=== PATIENT | male | born 1950 | race African-American/Black ===

== ENCOUNTER 2016-04-16 10:54 | Inpatient (IN) ==
[2016-04-16] MEDS ORDERED: ALPRAZolam 0.25 MG TABLET PO PRN (11:50)
[2016-04-16] MEDS ORDERED: PROMETHAZINE INJ 25 MG in SODIUM CHLORIDE 0.9% 50 ML IV PRN (11:50)
[2016-04-16] MEDS ORDERED: MYLANTA/LIDO VISC 2:1 300 ML BOTTLE SWISH/SPIT PRN (11:50)
[2016-04-16] MEDS ORDERED: chlorproMAZINE INJ 25 MG in SODIUM CHLORIDE 0.9% 100 ML IV PRN (11:50)
[2016-04-16] MEDS ORDERED: chlorproMAZINE INJ 50 MG in SODIUM CHLORIDE 0.9% 100 ML IV PRN (11:50)
[2016-04-16] MEDS ORDERED: MAGNESIUM HYDROXIDE SUSP 30 ML UDCUP PO PRN (11:50)
[2016-04-16] MEDS ORDERED: diphenhydrAMINE CAP 25 MG CAPSULE PO PRN (11:50)
[2016-04-16] MEDS ORDERED: MYLANTA/LIDO VISC 2:1 300 ML BOTTLE SWISH/SWAL PRN (11:50)
[2016-04-16] MEDS ORDERED: LACTULOSE 20 GM/30 ML UDCUP PO PRN (11:50)
[2016-04-16] MEDS ORDERED: BENZTROPINE 2 MG/2 ML AMP IV PRN (11:50)
[2016-04-16] MEDS ORDERED: traMADol 50 MG TABLET PO PRN (11:50)
[2016-04-16] MEDS ORDERED: ACETAMINOPHEN 325 MG TABLET PO PRN (11:50)
[2016-04-16] MEDS ORDERED: ALUMINUM/MAGNES/SIMETH MAX STR 30 ML UDCUP PO PRN (11:50)
[2016-04-16] MEDS ORDERED: TEMAZEPAM 7.5 MG CAPSULE PO PRN (11:50)
[2016-04-16] MEDS ORDERED: LOPERAMIDE 2 MG CAPSULE PO PRN ×2 (11:50)
[2016-04-16] MEDS ORDERED: chlorproMAZINE 25 MG TABLET PO PRN (11:50)
[2016-04-16] MEDS ORDERED: guaiFENesin 200 MG/10 ML UDCUP PO PRN (11:50)
[2016-04-16] MEDS ORDERED: ONDANSETRON 4 MG/2 ML VIAL IV PRN (11:50)
[2016-04-16] MEDS: SODIUM CHLORIDE 0.9% 1,000 ML IV SCH ×3 (12:35→13:54)
--- NOTE | 2016-04-16 14:32 | IR History and Physical Update ---
IR Pre-Procedure - History and Physical H&P was reviewed, the patient examined and there: are no changes in the patients condition since last H&P was completed. Reason for procedure:: 66-year-old male with severely elevated white count, 20-30. Admitted this afternoon for bone marrow aspirate, to be performed tomorrow. - Dictation Physical: refer to H&P completed by admitting physician - Physical Exam Vital Signs: Last Vital Signs Temp 98.3 F 04/16/16 11:39 Pulse 110 H 04/16/16 11:39 Resp 20 04/16/16 11:39 BP 125/68 04/16/16 11:39 Pulse Ox 96 04/16/16 11:39 Mental Status: alert and oriented - Sedation IR anesthesia plan for sedation: none ASA Class: II - Risks Risks: Procedures explained. Risks discussed include, but not limited to, the following:[ Pain] All questions answered. The following alternatives were discussed:[ Observation] Risks and benefits discussed with: patient Consent obtained from: patient
[2016-04-16] MEDS ORDERED: TEMAZEPAM 15 MG CAPSULE PO PRN (18:41)
[2016-04-16] MEDS: INSULIN GLARGINE 100 UNIT/ML SUBCUT SCH (20:55)
[2016-04-17] MEDS ORDERED: DIAZEPAM 5 MG TABLET PO ONE ×2 (00:01→11:00)
[2016-04-17 07:21] LABS: Basophils # 0.5 10*3/uL (0.0-0.2); Basophils % 0.5 % (0.0-0.8); Eosinophils # 1.5 10*3/uL (0.0-0.87); Eosinophils % 1.5 % (0.00-10.9); Hemoglobin 10.4 GM/DL (14.0-18.0); Immature Granulocytes % 13.5 %; Immature Granulocytes Absolute 13.21 #; Lymphocytes % 11.3 % (21.2-54.2); Mean Corpuscular HGB Conc 30.6 GM/DL (32-36); Mean Corpuscular Hemoglobin 32 PG (27-34); Monocytes # 19.1 10*3/uL (0.11-0.8); Monocytes % 19.6 % (1.7-12.7); NRBC # 6.03 10*3/uL; Neutrophils # 52.2 10*3/uL (1.4-7.4); Neutrophils % 53.6 % (38.7-73.9); Red Blood Count 3.27 MC/CUMM (3.8-5.5); Red Cell Distribution Width 18.6 % (9.3-17.3)
[2016-04-17 07:29] LABS: White Blood Count 97.5 T/CUMM (4-12)
[2016-04-17 07:30] LABS: Platelet Count 38 T/CUMM (130-400)
--- NOTE | 2016-04-17 07:45 | ECHO Report ---
Ted Seth Exam Date: 04/16/2016 14:52 Referring Physician: Technologist: An Olvera JORDANA Age: 66 Ht (in): Wt (lb): Gender: M Exam Location: [facility] Echo Indications: Suspected leukemia, for chemo meds BP: / HR: Rhythm: Sinus Technical Quality: IMPRESSIONS Normal left ventricular cavity size. Normal left ventricular wall thickness. Left ventricular ejection fraction is estimated at 60 %. Grade 1 diastolic dysfuncton. Mildly dilated left atrium. MEASUREMENTS (Male / Female) Normal Values 2D ECHO LV Diastolic Diameter PLAX 3.7 cm 4.2 - 5.9 / 3.9 - 5.3 cm LV Systolic Diameter PLAX 2.8 cm LV Fractional Shortening PLAX 24.1 % IVS Diastolic Thickness 0.9 cm 0.6 - 1.0 / 0.6 - 0.9 cm LVPW Diastolic Thickness 0.9 cm 0.6 - 1.0 / 0.6 - 0.9 cm RV Internal Dim ED PLAX 3.1 cm Aortic Root Diameter 3.3 cm LA Systolic Diameter LX 2.3 cm 3.0 - 4.0 / 2.7 - 3.8 cm DOPPLER TR Peak Velocity 292.0 cm/s TR Peak Gradient 34.1 mmHg FINDINGS Left Ventricle Normal left ventricular cavity size. Normal left ventricular wall thickness. Left ventricular ejection fraction is estimated at 60 %. Grade 1 diastolic dysfuncton. Right Ventricle The right ventricle is normal in size and function. Right Atrium The right atrium is normal in size. Left Atrium Mildly dilated left atrium. Mitral Valve Structurally normal mitral valve, with trace insufficiency. Aortic Valve Structurally normal aortic valve, without stenosis or regurgitation. Tricuspid Valve Morphologically normal tricuspid valve. Trace tricuspid valve regurgitation. Tricuspid regurgitation velocities suggest a PAP of 37 mmHg. Pulmonic Valve Morphologically normal pulmonic valve without significant stenosis. There is no pulmonic regurgitation. Pericardium Normal pericardium without effusion. Aorta Normal ascending aorta dimension. Nav Hector (Electronically Signed) Final Date: 17 April 2016 07:44
--- NOTE | 2016-04-17 08:09 | Ultrasound Report ---
Limited abdomen ultrasound. Comparison: March 19, 2016. Indication: Splenomegaly. Possible leukemia. The spleen is enlarged with a volume of 1279 mL. Dimensions of the spleen are 23 x 9.5 x 10.2 cm. This is slightly increased compared to the previous study. Within the spleen, as was noted previously, there are multiple small echogenic masses, not changed. Since the previous study, there has developed and 11 x 5.7 x 11 cm hypoechoic area with well-defined margins, and heterogeneity. It contains internal blood flow. Impression: Splenomegaly, with interval increase in the size of the spleen. Stable small echogenic foci within the spleen which may represent small hemangiomas. Development of a large hypoechoic area of abnormality within the spleen, in the absence of trauma, the differential is neoplasm versus infarct. PROCEDURE INTERPRETED AT [facility] DEPARTMENT OF RADIOLOGY Final Report Signed by: Dr. Bronwyn Dacosta
--- NOTE | 2016-04-17 08:21 | Oncology History&Physical ---
Assessment and Plan (1) Leukocytosis Status: Acute Assessment and plan: Plan for bone marrow aspiration and biopsy today. Also will check echocardiogram in anticipation of potential cardiotoxic chemotherapy Current Visit: Yes History of Present Illness Chief complaint: Leukocytosis History of present illness: Mr. Seth is a 66 year old male Followed since 2006 for myeloproliferative disorder. Over the last several months the patient has had a rising white blood cell count and declining platelet count. He has known splenomegaly from prior sonographic testing. He was seen in the office yesterday with a 90,000 white count with multiple peripheral blasts present. The patient does state that he actually stopped his hydroxyurea approximately 4 weeks ago due to concern for rash and pruritus. I was not aware of this decision. He is admitted for bone marrow biopsy with concern for conversion to secondary acute myelogenous leukemia Home Medications Medication Instructions Recorded Confirmed Type Hydroxyurea [Hydrea] 1,500 mg PO DAILY 04/16/16 04/16/16 History Insulin Glargine [Lantus] 25 unit SUBCUT BEDTIME 04/16/16 04/16/16 History Lisinopril 2.5 mg PO DAILY 04/16/16 04/16/16 History Pantoprazole Tab [Protonix Tab] 40 mg PO DAILY 04/16/16 04/16/16 History Temazepam [Restoril] 30 mg PO BEDTIME PRN 04/16/16 04/16/16 History metFORMIN [Glucophage] 500 mg PO BID W/MEALS 04/16/16 04/16/16 History Allergies Allergy/AdvReac Type Severity Reaction Status Date / Time Amoxicillin Allergy Verified 04/16/16 11:55 Medical,Surgical,& Family Hx - Social History Smoking Status: Unknown if ever smoked - Constitutional Constitutional: Present: fatigue, malaise, weight loss. Absent: night sweats - EENT Eye: Absent: blurry vision Ears: Absent: decreased hearing Nose, mouth and throat: Absent: dizziness, dysphagia, epistaxis - Cardiovascular Cardiovascular ROS IM: Absent: chest pain - Respiratory Respiratory: Absent: cough - Gastrointestinal Gastrointestinal: Absent: dysphagia, hematemesis, hematochezia - Genitourinary Genitourinary ROS male: Absent: hematuria, urinary incontinence - Musculoskeletal Musculoskeletal ROS: Absent: joint swelling, muscle cramps Exam - Constitutional Vitals: Period Temp Pulse Resp BP Sys/Cabrera Pulse Ox Last 24 Hr 97.3 F-98.3 F 93-110 18-20 114-129/61-68 96-100 General appearance: no acute distress, under weight - Head Head Exam: Present: normocephalic - Eye Eye Exam: Present: EOMI. Absent: conjunctival injection, periorbital swelling, scleral icterus - ENT ENT exam: Present: normal external ear exam - Neck Neck exam: Absent: lymphadenopathy - Respiratory Respiratory exam: Present: CTAB. Absent: accessory muscle use, chest wall tenderness - Cardiovascular Cardiovascular exam: Present: RRR. Absent: tachycardia - GI/Abdominal GI/Abdominal exam: Present: distended. Absent: ascites - Neurological Exam Neurological exam: Present: alert, oriented X3, normal gait - Psychiatric Psychiatric exam: Present: normal affect, normal mood - Skin Skin exam: Present: warm, diaphoretic Results - Labs CBC & BMP: 04/17/16 05:25
[2016-04-17] MEDS: INSULIN REGULAR 100 UNIT/ML SUBCUT SCH ×2 (08:57→17:31)
[2016-04-17 09:28] LABS: Band Neutrophils 3 % (0-10); Lymphocytes 8 % (20-55); Nucleated Red Blood Cells 6 (0-5); Segmented Neutrophils 70 % (50-85); Total Cells Counted 100
[2016-04-17 09:30] LABS: Elliptocytes Few; Hypochromasia 1+; Platelet Estimate Decreased
[2016-04-17 09:31] LABS: Macrocytosis Slight; Polychromasia Slight
[2016-04-17] MEDS: LISINOPRIL 2.5 MG TABLET PO SCH (09:38)
[2016-04-17] MEDS: PANTOPRAZOLE 40 MG TABLET PO SCH (09:38)
[2016-04-17] MEDS: HYDROXYUREA 500 MG CAPSULE PO SCH ×2 (09:38→09:44)
[2016-04-17] MEDS ORDERED: HEPARIN 5,000 UNIT/1 ML VIAL ONE (12:59)
--- NOTE | 2016-04-17 13:39 | Post Interventional Procedure ---
Pre-op diagnosis: Myelodysplastic syndrome, WBC 90k Post-op diagnosis: same Procedure: Bone marrow bx and aspirate Flouroscopy: 1.4 min Radiologist: Jeancarlos Grewal Anesthesia: local Specimens: other (aspirate and biopsy bone marrow) Estimated blood loss: none Complications: none Condition: stable
[2016-04-17] MEDS: SODIUM CHLORIDE 0.9% 1,000 ML IV SCH (14:16)
--- NOTE | 2016-04-17 16:09 | Interventional Radiology Rpt ---
IR Bone Marrow Biopsy Indication: Myelodysplastic syndrome. Recent increase in white count, now 90,000. 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 BONE MARROW BIOPSY- ASPIRATE Description: A formal timeout was performed. Fluoroscopic observation shows the posterior right iliac bone to be the best candidate for sampling from a posterior approach. With the patient prone on the fluoroscopy table, the overlying skin was prepped and draped in a sterile fashion. Skin was anesthetized with 5 cc 1% lidocaine, with lidocaine injected down to the periosteal surface. Under fluoroscopic observation, a 11 gauge Arrow guide needle was advanced to the periosteum. The outer cortex was gently penetrated with the pau tip stylette needle. A "Arrow on Control" drill was then used to penetrate the cortex several millimeters. After removing the stylette, bone marrow aspirate was performed obtaining 11 cc of bone marrow, directly into a syringe prefilled with 2000 units heparin. Cytopathology received the bone marrow aspirate and determined it was an adequate sample. The drill was reattached and the coring needle advanced an additional 3 cm into the marrow space and then withdrawn in one motion. The 11-gauge biopsy specimen was then removed from the needle and handed to cytopathology. A bandage was placed at the puncture site. Patient tolerated the procedure well. Medications: None. Fluoroscopy: 1.4 minutes. Impression: Uncomplicated successful bone marrow biopsy and aspirate as described. PROCEDURE INTERPRETED AT [facility] DEPARTMENT OF RADIOLOGY Final Report Signed by: Jeancarlos Grewal M.D.
[2016-04-17 16:15] LABS: INR 1.1; PT Patient Result 11.3 SECS; Partial Thromboplastin Time 31.7 SECS (0-40)
[2016-04-17] MEDS: INSULIN GLARGINE 100 UNIT/ML SUBCUT SCH (21:17)
[2016-04-18 05:54] LABS: Basophils # 0.4 10*3/uL (0.0-0.2); Basophils % 0.5 % (0.0-0.8); Eosinophils # 1.4 10*3/uL (0.0-0.87); Eosinophils % 1.8 % (0.00-10.9); Hematocrit 31.4 VOL% (42.0-52.0); Hemoglobin 9.9 GM/DL (14.0-18.0); Immature Granulocytes % 14.8 %; Immature Granulocytes Absolute 11.23 #; Lymphocytes % 11.9 % (21.2-54.2); Mean Corpuscular HGB Conc 31.5 GM/DL (32-36); Mean Corpuscular Hemoglobin 31 PG (27-34); Mean Corpuscular Volume 99.7 FL (87-102); Monocytes # 13.1 10*3/uL (0.11-0.8); Monocytes % 17.4 % (1.7-12.7); NRBC # 3.73 10*3/uL; Neutrophils # 40.6 10*3/uL (1.4-7.4); Neutrophils % 53.6 % (38.7-73.9); Red Blood Count 3.15 MC/CUMM (3.8-5.5); Red Cell Distribution Width 18.4 % (9.3-17.3)
[2016-04-18 06:01] LABS: Platelet Count 32 T/CUMM (130-400); White Blood Count 75.7 T/CUMM (4-12)
[2016-04-18 06:20] LABS: Band Neutrophils 8 % (0-10); Eosinophils 2 % (0-10); Lymphocytes 8 % (20-55); Nucleated Red Blood Cells 6 (0-5); Segmented Neutrophils 64 % (50-85); Total Cells Counted 100
[2016-04-18 06:21] LABS: Atypical Lymphocytes Few; Hypochromasia 1+; Macrocytosis Slight; Platelet Estimate Decreased; Polychromasia Slight
--- NOTE | 2016-04-18 08:04 | Oncology Progress Note ---
Assessment and Plan (1) Leukocytosis Status: Acute Assessment and plan: Plan for bone marrow aspiration and biopsy today. Also will check echocardiogram in anticipation of potential cardiotoxic chemotherapy Current Visit: Yes Oncology Subjective PN Interval history: Patient in no acute distress this morning. Slight decrease in white blood cell count. His sister from [place] was present and visiting. He is tolerating regular diet. He denies complications from yesterday's procedure. I discussed that I expect bone marrow results to be available late tomorrow or Saturday and I will keep him inpatient in the interim Exam - Constitutional Vitals: Period Temp Pulse Resp BP Sys/Cabrera Pulse Ox Last 24 Hr 96.2 F-98.3 F 86-106 18-20 108-120/58-82 95-100 Results - Labs CBC & BMP: 04/18/16 05:31
[2016-04-18] MEDS: INSULIN REGULAR 100 UNIT/ML SUBCUT SCH ×2 (08:25→16:15)
[2016-04-18] MEDS: PANTOPRAZOLE 40 MG TABLET PO SCH (08:27)
[2016-04-18] MEDS: LISINOPRIL 2.5 MG TABLET PO SCH (08:27)
[2016-04-18] MEDS: SODIUM CHLORIDE 0.9% 1,000 ML IV SCH (17:43)
[2016-04-18] MEDS: INSULIN GLARGINE 100 UNIT/ML SUBCUT SCH (21:23)
[2016-04-19 05:46] LABS: Basophils # 0.4 10*3/uL (0.0-0.2); Basophils % 0.4 % (0.0-0.8); Eosinophils # 1.6 10*3/uL (0.0-0.87); Eosinophils % 1.8 % (0.00-10.9); Hematocrit 33.6 VOL% (42.0-52.0); Hemoglobin 10.4 GM/DL (14.0-18.0); Immature Granulocytes % 15.1 %; Immature Granulocytes Absolute 13.37 #; Lymphocytes # 9.8 10*3/uL (1.4-4.0); Lymphocytes % 11.1 % (21.2-54.2); Mean Corpuscular Hemoglobin 31 PG (27-34); Mean Corpuscular Volume 101.2 FL (87-102); Monocytes # 16.7 10*3/uL (0.11-0.8); Monocytes % 18.8 % (1.7-12.7); NRBC # 3.73 10*3/uL; Neutrophils # 46.6 10*3/uL (1.4-7.4); Neutrophils % 52.8 % (38.7-73.9); Red Blood Count 3.32 MC/CUMM (3.8-5.5); Red Cell Distribution Width 18.1 % (9.3-17.3)
[2016-04-19 05:57] LABS: White Blood Count 88.4 T/CUMM (4-12)
[2016-04-19 05:58] LABS: Platelet Count 37 T/CUMM (130-400)
[2016-04-19 06:10] LABS: Albumin 2.8 G/DL (3.4-5.0); Calcium 8.6 MG/DL (8.5-10.1); Osmolality,Calculated 290.7 MOS/KG (273-304); Potassium 4.1 MMOL/L (3.5-5.1)
[2016-04-19 06:25] LABS: Band Neutrophils 4 % (0-10); Eosinophils 5 % (0-10); Lymphocytes 7 % (20-55); Nucleated Red Blood Cells 6 (0-5); Segmented Neutrophils 66 % (50-85); Total Cells Counted 100
[2016-04-19 06:26] LABS: Elliptocytes Few; Hypochromasia 1+; Macrocytosis Slight; Platelet Estimate Decreased; Polychromasia Slight
[2016-04-19] MEDS: INSULIN REGULAR 100 UNIT/ML SUBCUT SCH ×2 (08:08→17:01)
--- NOTE | 2016-04-19 08:38 | Oncology Progress Note ---
Assessment and Plan (1) Leukocytosis Status: Acute Assessment and plan: Plan for bone marrow aspiration and biopsy today. Also will check echocardiogram in anticipation of potential cardiotoxic chemotherapy Current Visit: Yes Oncology Subjective PN Interval history: Patient stable overnight. 10 year history of myeloproliferative disorder now with significant leukocytosis and circulating blasts. There are no preliminary results from bone marrow as of this morning. Perhaps will have something later today or hopefully by in the morning. The patient is nontoxic in general medical appearance he is eating voraciously and is in no acute distress Exam - Constitutional Vitals: Period Temp Pulse Resp BP Sys/Cabrera Pulse Ox Last 24 Hr 96.9 F-98.8 F 84-92 18-20 115-124/56-63 95-100 Results - Labs CBC & BMP: 04/19/16 05:28 04/19/16 05:28
[2016-04-19] MEDS: PANTOPRAZOLE 40 MG TABLET PO SCH (08:58)
[2016-04-19] MEDS: LISINOPRIL 2.5 MG TABLET PO SCH (08:58)
[2016-04-19] MEDS: SODIUM CHLORIDE 0.9% 1,000 ML IV SCH (12:39)
[2016-04-19] MEDS: INSULIN GLARGINE 100 UNIT/ML SUBCUT SCH (20:40)
[2016-04-20 07:03] LABS: Basophils # 0.5 10*3/uL (0.0-0.2); Basophils % 0.5 % (0.0-0.8); Eosinophils # 1.6 10*3/uL (0.0-0.87); Eosinophils % 1.6 % (0.00-10.9); Hematocrit 32.8 VOL% (42.0-52.0); Hemoglobin 10.1 GM/DL (14.0-18.0); Immature Granulocytes % 15.8 %; Immature Granulocytes Absolute 15.78 #; Lymphocytes # 11.6 10*3/uL (1.4-4.0); Lymphocytes % 11.6 % (21.2-54.2); Mean Corpuscular HGB Conc 30.8 GM/DL (32-36); Mean Corpuscular Hemoglobin 32 PG (27-34); Mean Corpuscular Volume 102.8 FL (87-102); Monocytes # 19.4 10*3/uL (0.11-0.8); Monocytes % 19.4 % (1.7-12.7); NRBC # 4.75 10*3/uL; Neutrophils # 51.1 10*3/uL (1.4-7.4); Neutrophils % 51.1 % (38.7-73.9); Platelet Count 46 T/CUMM (130-400); Red Blood Count 3.19 MC/CUMM (3.8-5.5); Red Cell Distribution Width 18.5 % (9.3-17.3)
[2016-04-20 07:09] LABS: Band Neutrophils 1 % (0-10); Eosinophils 1 % (0-10); Lymphocytes 10 % (20-55); Nucleated Red Blood Cells 5 (0-5); Segmented Neutrophils 67 % (50-85); Total Cells Counted 100
[2016-04-20 07:10] LABS: Elliptocytes Few; Hypochromasia 1+; Macrocytosis Slight; Platelet Estimate Decreased; Polychromasia Slight
[2016-04-20] MEDS: INSULIN REGULAR 100 UNIT/ML SUBCUT SCH (08:53)
[2016-04-20] MEDS: PANTOPRAZOLE 40 MG TABLET PO SCH (08:53)
[2016-04-20] MEDS: LISINOPRIL 2.5 MG TABLET PO SCH (08:53)
--- NOTE | 2016-04-20 11:16 | Discharge Summary ---
Hospital Course - Hospital Course Hospital Course: Patient admitted with leukocytosis and noncompliance with Hydrea for long- standing diagnosis of myeloproliferative disorder. Bone marrow aspirate and biopsy was performed during this hospitalization. I have reviewed available results at this time that showed 15% last by flow cytometry. Blasts are approximately 3% by micro-scopic review. The diagnosis of high-grade myeloid neoplasm is most appropriate at this time without overt acute myelogenous leukemia. The patient has remained stable during hospitalization. We will discharge on 2 g of Hydrea daily with weekly lab work 4. We discussed check of as a second line of treatment if counts cannot be adequately controlled with his current therapy. In addition to this he will resume his home doses of insulin lisinopril and metformin. Diagnosis - Discharge Diagnosis (1) Leukocytosis Status: Acute Discharge Plan - Discharge Medications Continue Insulin Glargine [Lantus] 25 unit SUBCUT BEDTIME Lisinopril 2.5 mg PO DAILY metFORMIN [Glucophage] 500 mg PO BID W/MEALS Pantoprazole Tab [Protonix Tab] 40 mg PO DAILY Temazepam [Restoril] 30 mg PO BEDTIME PRN PRN Reason: Sleep Changed Hydroxyurea [Hydrea] 2,000 mg PO DAILY #0 - Follow Up or Referral - Forms/Instructions Exam - Constitutional Vitals: Period Temp Pulse Resp BP Sys/Cabrera Pulse Ox Last 24 Hr 97.6 F-99.3 F 86-96 16-20 108-136/55-66 96-100 Discharge Results Labs on day of discharge: Labs from last 24 hours 04/20/16 04/20/16 04/19/16 08:10 04:51 16:15 WBC 100.0 H* RBC 3.19 L Hgb 10.1 L Hct 32.8 L MCV 102.8 H MCH 32 MCHC 30.8 L RDW 18.5 H Plt Count 46 L D Neut % (Auto) 51.1 Lymph % (Auto) 11.6 L Lake % (Auto) 19.4 H Eos % (Auto) 1.6 Baso % (Auto) 0.5 Neut # (Auto) 51.1 H Lymph # (Auto) 11.6 H Lake # (Auto) 19.4 H Eos # (Auto) 1.6 H Baso # (Auto) 0.5 H Total Counted 100 Immature Gran % 15.8 Nucleated RBC % 4.8 Immature Gran # 15.78 Segmented Neutrophils 67 Band Neutrophils 1 Lymphocytes 10 L Monocytes 3 Eosinophils 1 Basophils 1.0 H Nucleated RBCs 5 Nucleated RBCs # 4.75 Blast Cells 17 Platelet Estimate Decreased Polychromasia Slight Hypochromasia 1+ Macrocytosis Slight Elliptocytes Few Morphology Comment POC Glucose 102 103 DS: Provider Date of admission: 04/16/16 11:50 Primary care physician: BRETT Braga Attending physician on admission: Jeancarlos Bee MD Consults: 04/16/16 11:53 Consult to Physician [CONS] Routine Comment: bone marrow aspirate and bx alecia Consulting Provider: Jeancarlos Grewal Consulting Provider Notified: Yes When should Consulting Provider be notified: Now Consult to Specialist Group: Interventional Radiology When should Consulting Provider be notified: Now Person Notified: Sanaz Date Notified: 04/16/16 Time Notified: 11:45 04/16/16 12:08 Consult to Pharmacy [CONS] Routine Reason for Pharmacy Consult: Adjust Meds Renal Funct Discharging clinician: Jeancarlos Bee MD
[2016-04-20 11:45] VITALS: BP 126/67
--- NOTE | 2016-05-02 12:16 | Pathology Report from [facility] ---
ACCESSION # : [id number] PATIENT NAME : Ted Mullen ORDERING DR : MEGAN LOPES MD CLINICAL HX: Leukocytosis POST-OP DX: Same SPECIMEN INFO: Bone marrow biopsy to [facility] GROSS DESCRIPTION: Received is a bone marrow biopsy to be sent to [facility]. 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 The bone marrow is markedly hypercellular (>90% cellularity) and shows myeloid and megakaryocytic hyperplasia with mild dysgranulopoiesis and marked dysmegakaryopoiesis. Blasts appear increased, ~10-15%. Flow cytometric studies reveal an increased blast population (~15% of total). Pathogenic alterations are detected in the JAK2 and WT1 genes. Cytogenetic studies are supportive of a myeloid neoplasm. the findings are consistent with a JAK2+ high grade myeloid neoplasm and the main differential diagnosis includes a myelodysplastic/myeloproliferative neoplasm, unclassifiable. Recommend correlation with peripheral blood smear for further evaluation. Additionally, the BCR-ABL1 transcript is detected near the lower limit of he assay. However, as FISH for BCR/ABL is normal and the karyotype does not show t (9;22), the overall findings are not supportive of chronic myelogenous leukemia. Clinical correlation and correlation with ancillary studies are recommended for final interpretation.MORPHOLOGY: BONE MARROW ASPIRATE AND BIOPSY: Consistent with a high grade myeloid neoplasm (~10-15% blasts). Mild reticulin fibrosis. Decreased iron stores.FLOW CYTOMETRY: An increased blast population (~15% of total) is detected, expressing myeloid markers, consistent with myeloblasts.BCR-ABL t(9;22) Real-Time PCR: BCR-ABL1 transcript is detected near the lower limit of the assay.CYTOGENETICS/FISH: Cytogenetic analysis reveals an ABNORMAL male karyotype.GENOMIC PROFILING: Myeloid Molecular Profile: Pathogenic alterations are DETECTED in the JAK2 and WT1 genes. Likely pathogenic alteration is DETECTED in the RUNX1 gene. Genomic alteration of uncertain significance is DETECTED in the SMC3 gene. SERVICE DATE: 04/19/2016 REPORT DATE: 05/02/2016 PATHOLOGIST: Karina Oneil M.D. [facility]
== END 2016-04-20 12:45 | disposition home or self-care (01) | DRG 812 ==
LOC: N.4E 11:09
PROVIDERS: ADMIT Specialist; ATTEND Specialist

== ENCOUNTER 2016-06-25 08:23 | Inpatient (IN) ==
--- NOTE | 2016-06-25 09:01 | Emergency Department Note ---
Dewey Wlal Hilary, am scribing for, and in the presence of, Edward Piedra MD 08: 57. Dorothea Wall James D, MD, personally performed the services described in this documentation, ascribed by Radha Palomo in my presence, and it is both accurate and complete 900 . Arrival - Arrival Chief Complaint: Nosebleed/Nasal Foreign Body Stated Complaint: nose bleed,dizziness ED Nursing Triage Note: Pt c/o nose bleed from the left nare since last night. No active bleeding at triage. Also c/o MARIE and dizziness. Pt started Jakafi 3 wks ago. Mode of Arrival: Ambulatory Limitations: No Limitations Source: Patient, Old Records Reviewed, RN Notes Reviewed Time Seen by Provider: 06/25/16 08:28 - History of Present Illness HPI Narrative: Pt is a 66 y/o male presenting to the ED with c/o nose bleed from the left nare which onset last night. Pt is a poor historian and has no active bleeding in the ED. Pt is seeing Dr. Bee for Red and white blood cell elevation, will call to get more history. According to Dr. Bee, the patient's WBC count last week in the office was 175, 000. Patient did not want to be admitted at that time. Onset (ago): hour(s) Consistency: constant Severity: mild Allergies/Adverse Reactions: Allergies Allergy/AdvReac Type Severity Reaction Status Date / Time Amoxicillin Allergy Verified 04/16/16 11:55 Home Medications: Home Medications Medication Instructions Recorded Confirmed Type Lisinopril 2.5 mg PO DAILY 04/16/16 06/25/16 History Pantoprazole Tab [Protonix Tab] 40 mg PO DAILY 04/16/16 06/25/16 History metFORMIN [Glucophage] 850 mg PO BID W/MEALS 04/16/16 06/25/16 History Ruxolitinib Phosphate [Jakafi] 10 mg PO BID 06/25/16 06/25/16 History Review of System - Review of System 12 point system: reviewed and no additional remarkable complaints except as stated - Review of System Constitutional: Absent: fever Head/Ears/Nose/Throat: Present: nasal drainage (bleeding from left nare) Medical,Surgical,& Family Hx - Medical History Endocrine: History of: Diabetes Mellitus (IDDM) Gastrointestinal: History of: GERD Hematology: History of: Blood Disorders - Social History Smoking Status: Current every day smoker Exam Physical Examination: GENERAL: This is a well-nourished, well-developed male in no apparent distress. VITAL SIGNS: Temperature: 98.9F Pulse: 106H Respiratory: 18 Blood Pressure: 131/68 O2SAT: 99 HEENT: Head is normocephalic and atraumatic. Pupils are equally round and reactive to light. Extraocular movement are intact. Oropharynx is benign with dry mucous membranes. NECK: Neck is soft and supple without tenderness. There are no masses. There is no lymphadenopathy. LUNGS: Lungs are clear to auscultation bilaterally. Chest rises symmetrically. There is no chest wall tenderness. CV: Heart is regular rate and rhythm without murmurs, rubs, or gallops. ABDOMEN:Abdomen is soft, non-tender to palpation. There are no abnormal masses palpated. There is no organomegaly. Bowel sounds are present and active. SKIN: Skin is warm and dry. No rash. EXTREMITIES: Patient has full range of motion without tenderness. There is no pedal edema. NEUROLOGIC: Awake, alert, and oriented x4. Cranial nerves II through XII are grossly intact. There are no motorsensory deficits. PSYCHIATRIC: Normal affect. Normal mood. Vital Signs: Vital Signs Temperature 98.9 F 06/25/16 15:57 Pulse Rate 101 H 06/25/16 15:57 Respiratory Rate 18 06/25/16 15:57 Blood Pressure 118/57 06/25/16 15:57 O2 Sat by Pulse Oximetry 92 L 06/25/16 15:57 Course - Consultations Consultation #1: Discussed with Dr. Bee. Patient will be admitted to his service. Initial orders written for him. He will assume care upon patient's arrival on the [facility]. Time: 09:01 Results - Labs CBC & BMP: 06/25/16 09:01 06/25/16 09:01 Lab Results: I have reviewed the patients labs Labs: Laboratory Tests 06/25/16 09:01 WBC 275.5 H* RBC 2.05 L Hgb 7.1 L Hct 23.0 L MCV 112.2 H MCH 35 H MCHC 30.9 L RDW 25.8 H Plt Count 83 L Neut % (Auto) 30.8 L Lymph % (Auto) 15.1 L Upson % (Auto) 36.1 H Neut # (Auto) 84.9 H Lymph # (Auto) 41.7 H Upson # (Auto) 99.4 H Baso # (Auto) 1.6 H Laboratory Tests 06/25/16 09:01 Sodium 140 Potassium 4.0 Chloride 106 Carbon Dioxide 25 BUN 20 H Creatinine 1.40 H Glucose 62 L AST 246 H ALT 165 H Alkaline Phosphatase 754 H Albumin 3.3 L Globulin 3.7 H Albumin/Globulin Ratio 0.8 L Disposition Clinical Impression: Leukocytosis, Anemia, Thrombocytopenia Case discussed with: patient Disposition: Still a Patient Condition: Stable
[2016-06-25 09:20] LABS: Basophils # 1.6 10*3/uL (0.0-0.2); Basophils % 0.6 % (0.0-0.8); Eosinophils # 0.7 10*3/uL (0.0-0.87); Eosinophils % 0.3 % (0.00-10.9); Hemoglobin 7.1 GM/DL (14.0-18.0); Immature Granulocytes % 17.1 %; Immature Granulocytes Absolute 47.23 #; Lymphocytes # 41.7 10*3/uL (1.4-4.0); Lymphocytes % 15.1 % (21.2-54.2); Mean Corpuscular HGB Conc 30.9 GM/DL (32-36); Mean Corpuscular Hemoglobin 35 PG (27-34); Mean Corpuscular Volume 112.2 FL (87-102); Monocytes # 99.4 10*3/uL (0.11-0.8); Monocytes % 36.1 % (1.7-12.7); NRBC # 10.24 10*3/uL; Neutrophils # 84.9 10*3/uL (1.4-7.4); Neutrophils % 30.8 % (38.7-73.9); Platelet Count 83 T/CUMM (130-400); Red Blood Count 2.05 MC/CUMM (3.8-5.5); Red Cell Distribution Width 25.8 % (9.3-17.3)
[2016-06-25 09:26] LABS: White Blood Count 275.5 T/CUMM (4-12)
[2016-06-25 09:36] LABS: INR 1.2; Partial Thromboplastin Time 34.3 SECS (0-40)
[2016-06-25 09:46] LABS: Band Neutrophils 2 % (0-10); Eosinophils 1 % (0-10); Lymphocytes 15 % (20-55); Myelocytes 8 %; Nucleated Red Blood Cells 3 (0-5); Segmented Neutrophils 48 % (50-85); Total Cells Counted 100
[2016-06-25 09:49] LABS: Giant Platelets Moderate; Hypochromasia 2+; Microcytosis 1+; Platelet Estimate Decreased
[2016-06-25 09:59] LABS: Albumin 3.3 G/DL (3.4-5.0); Bilirubin,Total 0.7 MG/DL (0.2-1.0); Calcium 8.8 MG/DL (8.5-10.1); Osmolality,Calculated 279.4 MOS/KG (273-304)
[2016-06-25] MEDS ORDERED: LACTULOSE 20 GM/30 ML UDCUP PO PRN (12:05)
[2016-06-25] MEDS ORDERED: chlorproMAZINE 25 MG TABLET PO PRN (12:05)
[2016-06-25] MEDS ORDERED: PROMETHAZINE INJ 25 MG in SODIUM CHLORIDE 0.9% 50 ML IV PRN (12:05)
[2016-06-25] MEDS ORDERED: chlorproMAZINE INJ 50 MG in SODIUM CHLORIDE 0.9% 100 ML IV PRN (12:05)
[2016-06-25] MEDS ORDERED: guaiFENesin 200 MG/10 ML UDCUP PO PRN (12:05)
[2016-06-25] MEDS ORDERED: MAGNESIUM HYDROXIDE SUSP 30 ML UDCUP PO PRN (12:05)
[2016-06-25] MEDS ORDERED: TEMAZEPAM 7.5 MG CAPSULE PO PRN (12:05)
[2016-06-25] MEDS ORDERED: ACETAMINOPHEN 325 MG TABLET PO PRN (12:05)
[2016-06-25] MEDS ORDERED: BENZTROPINE 2 MG/2 ML AMP IV PRN (12:05)
[2016-06-25] MEDS ORDERED: ONDANSETRON 4 MG/2 ML VIAL IV PRN (12:05)
[2016-06-25] MEDS ORDERED: LOPERAMIDE 2 MG CAPSULE PO PRN ×2 (12:05)
[2016-06-25] MEDS ORDERED: MYLANTA/LIDO VISC 2:1 300 ML BOTTLE SWISH/SPIT PRN (12:05)
[2016-06-25] MEDS ORDERED: SODIUM CHLORIDE 0.9% 1,000 ML IV SCH (12:05)
[2016-06-25] MEDS ORDERED: ALPRAZolam 0.25 MG TABLET PO PRN (12:05)
[2016-06-25] MEDS ORDERED: ALUMINUM/MAGNES/SIMETH MAX STR 30 ML UDCUP PO PRN (12:05)
[2016-06-25] MEDS ORDERED: diphenhydrAMINE CAP 25 MG CAPSULE PO PRN (12:05)
[2016-06-25] MEDS ORDERED: traMADol 50 MG TABLET PO PRN (12:05)
[2016-06-25] MEDS ORDERED: chlorproMAZINE INJ 25 MG in SODIUM CHLORIDE 0.9% 100 ML IV PRN (12:05)
[2016-06-25] MEDS ORDERED: MYLANTA/LIDO VISC 2:1 300 ML BOTTLE SWISH/SWAL PRN (12:05)
--- NOTE | 2016-06-25 12:52 | XRay Report ---
History: Leukocytosis, anemia, thrombocytopenia Date: 06/25/2016 Study: Chest x-ray PA lateral Comparison exam: October 06, 2009 chest x-ray The cardiac silhouette is not enlarged. There is no mediastinal mass. The pulmonary vasculature is not grossly engorged. There is some strandy and hazy basilar atelectasis/infiltrate. There is minimal pleural effusion on the left. The osseous structures are unchanged. Impression: Bibasilar atelectasis/infiltrate. Consider underlying pneumonia. Minimal left pleural effusion PROCEDURE INTERPRETED AT [facility] DEPARTMENT OF RADIOLOGY Final Report Signed by: Dr. Cammie Esquivel
[2016-06-25] MEDS ORDERED: cefTRIAXone 1,000 MG in SODIUM CHLORIDE 0.9% 100 ML IV SCH (14:00)
[2016-06-25 15:58] VITALS: BP 118/57
--- NOTE | 2016-07-11 08:33 | Oncology History&Physical ---
History of Present Illness History of present illness: Mr. Seth is a 66 year old male Admitted through the adult ER with complaints of weakness and leukocytosis. This patient was transferred directly from [address] [place] [address] prior to my interview and examination with a working diagnosis of acute myelogenous leukemia Home Medications Medication Instructions Recorded Confirmed Type Lisinopril 2.5 mg PO DAILY 04/16/16 06/25/16 History Pantoprazole Tab [Protonix Tab] 40 mg PO DAILY 04/16/16 06/25/16 History metFORMIN [Glucophage] 850 mg PO BID W/MEALS 04/16/16 06/25/16 History Ruxolitinib Phosphate [Jakafi] 10 mg PO BID 06/25/16 06/25/16 History Allergies Allergy/AdvReac Type Severity Reaction Status Date / Time Amoxicillin Allergy Verified 04/16/16 11:55 Medical,Surgical,& Family Hx - Medical History Cardio: History of: Hypertension Endocrine: History of: Diabetes Mellitus (IDDM) Gastrointestinal: History of: GERD Hematology: History of: Blood Disorders - Family History Family History: Reports;: Family Diabetes (mother), Family Heart Disease ( mother and father) - Social History Smoking Status: Current every day smoker Frequency of Alcohol Use: None Type of Drug Use: None Results - Labs CBC & BMP: 06/25/16 09:01 06/25/16 09:01
== END 2016-06-25 19:30 | disposition hospice, home (50) | DRG 812 ==
LOC: N.ED 08:23 → N.EDINP 10:53 → N.4E 11:51
PROVIDERS: ADMIT Specialist; ATTEND Specialist